=== PATIENT | female | born 1960 | race Caucasian/White ===

== ENCOUNTER → 2018-11-02 14:34 | Outpatient (CLI) | payer OTHER, SELFPAY ==
--- NOTE | 2018-11-02 | DI.MG.S_ITS ---
BILATERAL DIGITAL SCREENING MAMMOGRAM 3D/2D WITH CAD POST LUMPECTOMY: 11/02/2018 CLINICAL: Routine screening. Personal history of left breast cancer. Family history of breast cancer. Comparison is made to exams dated: 04/25/2015 mammogram, 12/21/2013 mammogram, and 03/19/2012 mammogram - [facility]. There are scattered fibroglandular elements in both breasts. Current study was also evaluated with a Computer Aided Detection (CAD) system. The patient is status post partial mastectomy left breast in the posterior depth in the upper outer quadrant. The left breast has post-operative findings. There is a possible developing oval equal density asymmetry in the right breast at 11 o'clock anterior depth. This appears more prominent. There is a post-surgical scar associated with the asymmetry. No other significant masses, calcifications, or other findings are seen in either breast. IMPRESSION: INCOMPLETE: NEEDS ADDITIONAL IMAGING EVALUATION The possible developing oval equal density asymmetry in the right breast is indeterminate. Additional views with possible ultrasound are recommended. This exam was interpreted at Station ID: [id number]. NOTE: For mammograms, a report in lay terms will be sent to the patient. Approximately 15% of breast malignancies will not be visualized mammographically. In the management of a palpable breast mass, a negative mammogram must not discourage biopsy of a clinically suspicious lesion. Electronically Signed By: Amrik Ramos M.D. aty/:11/02/2018 15:35:10 letter sent: Additional Imaging Needed ACR BI-RADS Category 0: Incomplete 3340F
== END ==
PROVIDERS: Visit Provider Nurse Practitioner
DX: Z12.31 Encounter for screening mammogram for malignant neoplasm of breast (principal); Z85.3 Personal history of malignant neoplasm of breast; Z80.3 Family history of malignant neoplasm of breast
CPT/HCPCS: 77063; 77067

== ENCOUNTER → 2018-11-06 14:52 | Outpatient (CLI) | payer OTHER, SELFPAY ==
--- NOTE | 2018-11-06 | DI.US.S_ITS ---
ULTRASOUND OF RIGHT BREAST: 11/06/2018 CLINICAL: Patient returns today to evaluate a density in the right breast. Comparison is made to exams dated: 11/06/2018 mammogram, 11/02/2018 mammogram - [facility], 04/25/2015 mammogram, 12/21/2013 mammogram, and 03/19/2012 mammogram - [facility]. Color flow ultrasound of the right breast was performed on the areas of interest. Gonzalez scale images of the real-time examination were reviewed. There is a cluster of microcysts in the right breast at 9 o'clock middle depth. This correlates with mammography findings. IMPRESSION: PROBABLY BENIGN The cluster of microcysts in the right breast is probably benign. A follow-up right mammogram and an ultrasound in 6 months is recommended to demonstrate stability. This exam was interpreted at Station ID: [id number]. Electronically Signed By: Ysabel arango/:11/07/2018 15:47:13 letter sent: Followup Recommended Ultrasound BI-RADS: 3 Probably benign
--- NOTE | 2018-11-06 | DI.MG.S_ITS ---
UNILATERAL RIGHT DIGITAL DIAGNOSTIC MAMMOGRAM 3D/2D WITH ADDITIONAL VIEWS POST LUMPECTOMY: 11/06/2018 CLINICAL: Family history of breast cancer. Personal history of breast cancer. Additional evaluation requested from prior study. Comparison is made to exams dated: 11/02/2018 mammogram - [facility], 04/25/2015 mammogram, and 12/21/2013 mammogram - [facility]. There are scattered fibroglandular elements in right breast. There is a focal asymmetry in the right breast at 7 o'clock anterior depth. No other significant masses or calcifications are seen in the breast. IMPRESSION: INCOMPLETE: NEEDS ADDITIONAL IMAGING EVALUATION A targeted ultrasound of the right breast is recommended and will be performed immediately following this exam. The focal asymmetry in the right breast is indeterminate. An ultrasound is recommended. This exam was interpreted at Station ID: [id number]. NOTE: For mammograms, a report in lay terms will be sent to the patient. Approximately 15% of breast malignancies will not be visualized mammographically. In the management of a palpable breast mass, a negative mammogram must not discourage biopsy of a clinically suspicious lesion. Electronically Signed By: Ysabel arango/kodak:11/07/2018 15:47:44 ACR BI-RADS Category 0: Incomplete 3340F
== END ==
PROVIDERS: Visit Provider Nurse Practitioner
DX: R92.8 Other abnormal and inconclusive findings on diagnostic imaging of breast (principal); Z85.3 Personal history of malignant neoplasm of breast; Z80.3 Family history of malignant neoplasm of breast
CPT/HCPCS: 76642; 77065; G0279

== ENCOUNTER → 2019-07-01 09:30 | Outpatient (CLI) | payer OTHER, SELFPAY ==
--- NOTE | 2019-07-01 | DI.MG.S_ITS ---
UNILATERAL RIGHT DIGITAL DIAGNOSTIC MAMMOGRAM 3D/2D SHORT-TERM FOLLOW-UP POST LUMPECTOMY: 07/01/2019 CLINICAL: Patient returns for a 6 month follow up of the right breast. Comparison is made to exams dated: 11/06/2018 mammogram, 11/02/2018 mammogram - [facility], and 04/25/2015 mammogram - [facility]. There are scattered fibroglandular elements in right breast. There is a stable focal asymmetry in the right breast at 7 o'clock anterior depth. No other significant masses or calcifications are seen in the breast. There is a biopsy clip at 6:00, and scarring in the upper outer mid breast. IMPRESSION: INCOMPLETE: NEEDS ADDITIONAL IMAGING EVALUATION The focal asymmetry in the right breast is stable. A targeted ultrasound of the right breast is recommended for confirmation and will be performed immediately following this exam. This exam was interpreted at Station ID: [id number]. NOTE: For mammograms, a report in lay terms will be sent to the patient. Approximately 15% of breast malignancies will not be visualized mammographically. In the management of a palpable breast mass, a negative mammogram must not discourage biopsy of a clinically suspicious lesion. Electronically Signed By: Norah granda/:07/01/2019 10:48:54 ACR BI-RADS Category 0: Incomplete 3340F
--- NOTE | 2019-07-01 | DI.US.S_ITS ---
ULTRASOUND OF RIGHT BREAST: 07/01/2019 CLINICAL: 6 month follow-up of the right breast. Comparison is made to exams dated: 07/01/2019 mammogram, 11/06/2018 ultrasound, 11/06/2018 mammogram, 11/02/2018 mammogram - [facility], 04/25/2015 mammogram, and 12/21/2013 mammogram - [facility]. Color flow and real-time ultrasound of the right breast were performed. Gonzalez scale images of the real-time examination were reviewed. There is a 1.2 cm x 0.6 cm x 1.3 cm oval cluster of microcysts in the right breast at 9 o'clock anterior depth 3 cm from the nipple. This cluster of microcysts displays a well-defined boundary, and a small central solid component with trace vascularity. This abnormalities has not significantly changed and correlates with mammography findings. IMPRESSION: PROBABLY BENIGN The 1.3 cm cluster of microcysts in the right breast is probably benign. A follow-up ultrasound in 6 months at the time of screening mammography is recommended to demonstrate stability. Findings and recommendations were conveyed to the patient at time of exam. This exam was interpreted at Station ID: [id number]. Electronically Signed By: Norah granda/:07/01/2019 12:45:22 letter sent: Followup Recommended Ultrasound BI-RADS: 3 Probably benign
== END ==
PROVIDERS: PCP Family Medicine; Visit Provider Family Medicine
DX: R92.8 Other abnormal and inconclusive findings on diagnostic imaging of breast (principal); N64.89 Other specified disorders of breast
CPT/HCPCS: 76642; 77065; G0279

== ENCOUNTER → 2023-02-10 08:36 | Outpatient (CLI) | payer OTHER, SELFPAY ==
--- NOTE | 2023-02-10 | DI.MG.S_ITS ---
BILATERAL DIGITAL DIAGNOSTIC MAMMOGRAM 3D/2D: 02/10/2023 CLINICAL: Short term follow up of the right breast, due for bilateral imaging. Comparison is made to exams dated: 07/01/2019 ultrasound, 07/01/2019 mammogram, 11/02/2018 mammogram - [facility], 04/25/2015 mammogram, and 12/21/2013 mammogram - [facility]. There are scattered areas of fibroglandular density in both breasts (category b / 25%-50% glandular tissue). There is a focal asymmetry in the right breast at 9 o'clock anterior depth. This is not significantly changed. There also is a focal asymmetry in the right breast at 3 o'clock middle depth. This is more prominent. Stable post-operative finding in the left breast. Right breast scar marker. No other significant masses, calcifications, or other findings are seen in either breast. IMPRESSION: INCOMPLETE: NEEDS ADDITIONAL IMAGING EVALUATION The focal asymmetry in the right breast at 9 o'clock anterior depth is indeterminate. The focal asymmetry in the right breast at 3 o'clock middle depth resembles a cyst and is indeterminate. A targeted ultrasound is recommended and will immediately follow. This exam was interpreted at Station ID: [id number]. NOTE: For mammograms, a report in lay terms will be sent to the patient. Approximately 15% of breast malignancies will not be visualized mammographically. In the management of a palpable breast mass, a negative mammogram must not discourage biopsy of a clinically suspicious lesion. Electronically Signed By: Zachariah Fernandez M.D. slc/:02/10/2023 09:24:58 ACR BI-RADS Category 0: Incomplete 3340F
--- NOTE | 2023-02-10 | DI.US.S_ITS ---
LIMITED ULTRASOUND OF RIGHT BREAST: 02/10/2023 CLINICAL: Patient returns today to evaluate two focal asymmetries in the right breast. Comparison is made to exams dated: 02/10/2023 mammogram, 07/01/2019 ultrasound, 07/01/2019 mammogram, 11/06/2018 ultrasound, 11/06/2018 mammogram, and 11/02/2018 mammogram - [facility]. Color flow and real-time ultrasound of the right breast 3 o'clock and 9-10 o'clock regions were performed. Gonzalez scale images of the real-time examination were reviewed. There is a benign 0.9 cm x 0.7 cm x 0.5 cm cluster of oval micro cysts with a septated internal wall in the right breast at 9 o'clock anterior depth 3 cm from the nipple. These abnormalities are decreased in size and correlates with mammography findings. Color flow imaging demonstrates that there is no vascularity present. There also is a benign 1.1 cm x 0.6 cm x 0.4 cm oval simple cyst in the right breast at 3 o'clock anterior depth 2 cm from the nipple. This oval simple cyst is anechoic. This correlates with mammography findings. Color flow imaging demonstrates that there is no vascularity present. IMPRESSION: BENIGN There is no sonographic evidence of malignancy. The 0.9 cm cluster of oval micro cysts in the right breast at 9 o'clock anterior depth decreased in size and is benign. The 1.1 cm simple cyst in the right breast at 3 o'clock anterior depth is benign. A 1 year screening mammogram is recommended. Exam findings were conveyed to the patient. This exam was interpreted at Station ID: [id number]. Electronically Signed By: Zachariah Fernandez M.D. [facility] [place]/:02/10/2023 11:17:24 letter sent: Normal Exam Ultrasound BI-RADS: 2 Benign
== END ==
PROVIDERS: PCP Family Medicine; Referring Provider Family Medicine; Visit Provider Family Medicine
DX: R92.8 Other abnormal and inconclusive findings on diagnostic imaging of breast (principal); N60.01 Solitary cyst of right breast
CPT/HCPCS: 76642; 77066; G0279

== ENCOUNTER → 2025-04-01 16:24 | Outpatient (CLI) | payer MEDICARE, SELFPAY ==
--- NOTE | 2025-04-01 16:29 | DI.MG.S_ITS ---
MM screening mammo BI: 04/01/2025. BI-RADS: 2 CLINICAL: 65-year old female for bilateral screening mammogram. No Tyrer-Cuzick risk score calculation due to the patient's personal history of breast cancer. Patient reports a history of left breast carcinoma diagnosed at age 59. Status-post left lumpectomy with radiation therapy, chemotherapy and hormonal therapy. Current reported family history of breast cancer: mother. The patient had prior bilateral breast biopsies. PRIOR EXAMS 02/10/2023, 07/01/2019, 11/06/2018, 11/02/2018. MAMMOGRAPHY TECHNIQUE: 2D and 3D (tomosynthesis) digital mammographic views obtained, with additional images as needed for full coverage. Current study was also evaluated with a Computer Aided Detection (CAD) system. DENSITY B. There are scattered areas of fibroglandular density. MAMMOGRAPHY FINDINGS Right: Biopsy marker present on the right. There are no suspicious masses, calcifications, or other findings in the breast. Left: Benign-appearing post-surgical changes noted on the left. There are no suspicious masses, calcifications, or other findings in the breast. IMPRESSION: * No evidence of malignancy with benign findings. RECOMMENDATIONS Bilateral * Annual screening mammography. OVERALL ASSESSMENT CATEGORY BI-RADS-2: Benign. The [employer] recommends annual screening mammography beginning at age 40 for women with average risk of breast cancer. ELECTRONICALLY SIGNED: Kavita Shae M.D. on 04/04/2025 at 12:41:27 AM PT Interpreting Station ID: [id number]
== END ==
PROVIDERS: PCP Family Medicine; Referring Provider Family Medicine; Visit Provider Family Medicine
DX: Z12.31 Encounter for screening mammogram for malignant neoplasm of breast (principal); Z85.3 Personal history of malignant neoplasm of breast; Z80.3 Family history of malignant neoplasm of breast
CPT/HCPCS: 77063; 77067